=== PATIENT | male | born 1945 | race Caucasian/White ===

== ENCOUNTER 2017-12-04 15:39 | Emergency (ER) | payer OTHER ==
--- NOTE | 2017-12-04 15:51 | EDPHY ---
H & P Stated Complaint: CP Time Seen by Provider: 12/04/17 15:51 HPI/ROS: CHIEF COMPLAINT: Chest pain HISTORY OF PRESENT ILLNESS: The patient presents to the ED for evaluation of several days of substernal chest discomfort. The patient reports his symptoms are mild in nature. They seem to be primarily worsened with swallowing. Patient did exercise on his treadmill yesterday without any symptoms of increasing chest pain or shortness of breath. The patient denies any asymmetric calf pain or swelling. He denies any radiation of the pain to his neck jaw back or arms. The patient's past medical history is significant for hypertension. The patient denies recent surgery. The patient denies pleuritic chest pain. REVIEW OF SYSTEMS: A comprehensive 10 point review of systems is otherwise negative aside from elements mentioned in the history of present illness. Source: Patient Exam Limitations: No limitations - Personal History Current Tetanus/Diphtheria Vaccine: Yes - Medical/Surgical History Hx Asthma: No Hx Chronic Respiratory Disease: No Hx Diabetes: No Hx Cardiac Disease: Yes Hx Renal Disease: No Hx Cirrhosis: No Hx Alcoholism: No Hx HIV/AIDS: No Hx Splenectomy or Spleen Trauma: No Other PMH: stroke 2010, HTN - Social History Smoking Status: Never smoked - Physical Exam Exam: General Appearance: Alert, no distress Eyes: Pupils equal and round no pallor or injection ENT, Mouth: Mucous membranes moist Respiratory: There are no retractions, lungs are clear to auscultation Cardiovascular: Regular rate and rhythm Gastrointestinal: Abdomen is soft and nontender, no masses, bowel sounds normal Neurological: A&O, normal motor function, normal sensory exam, normal cranial nerves Skin: Warm and dry, no rashes Musculoskeletal: Neck is supple nontender Extremities: symmetrical, full range of motion Psychiatric: Patient is oriented X 3, there is no agitation Constitutional: Initial Vital Signs Temperature (C) 36.7 C 12/04/17 15:41 Heart Rate 62 12/04/17 15:41 Respiratory Rate 18 12/04/17 15:41 Blood Pressure 174/99 H 12/04/17 15:41 O2 Sat (%) 96 12/04/17 15:41 O2 Delivery Mode Room Air Allergies/Adverse Reactions: No Known Allergies Allergy (Unverified 12/04/17 15:45) Home Medications: Medication Instructions Recorded Amlodipine Besylate 05/09/13 Lipitor 80 mg 05/09/13 Lisinopril 05/09/13 Plavix (RX) 05/09/13 Medical Decision Making - Diagnostics EKG Interpretation: EKG: Complete interpretation has been separately recorded in the [facility] archive. Summary impression: Sinus rhythm, rate 59 Imaging Results: Imaging Impressions Chest X-Ray 12/04/17 16:02 Impression: 1. No active cardiopulmonary disease seen. 2. Healed fractures lateral right mid ribs. Chest x-ray AP lateral: Images reviewed by myself, negative for acute disease. Formal interpretation by Radiology pending. ED Course/Re-evaluation: The patient presents the ED with a several day history of painful swallowing. The patient denies any exertional chest pain or shortness of breath. He has no pleuritic chest pain. Patient was given a GI cocktail in the emergency department with improvement of his symptoms. His chest x-ray demonstrates no obvious disease by my interpretation. His EKG demonstrates no evidence of ischemia and his troponin is normal. At this point time I do favor dyspepsia and a likely esophageal source of his discomfort. 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 The patient has been instructed to return to the ED for markedly worsening chest pain, chest pain that is becoming exertional, fever, shortness of breath or for other acute concerns. Differential Diagnosis: Differential diagnosis considered includes dyspepsia, esophageal spasm, pericarditis, myocardial infarction, pancreatitis, hiatal hernia - Data Points Laboratory Results: Laboratory Results 12/04/17 15:59 12/04/17 15:59 12/04/17 12/04/17 12/04/17 15:59 15:59 15:56 WBC 13.95 10^3/uL H 10^3/uL (3.80-9.50) RBC 4.29 10^6/uL L 10^6/uL (4.40-6.38) Hgb 14.2 g/dL g/dL (13.7-17.5) Hct 42.1 % % (40.0-51.0) MCV 98.1 fL fL (81.5-99.8) MCH 33.1 pg pg (27.9-34.1) MCHC 33.7 g/dL g/dL (32.4-36.7) RDW 12.5 % % (11.5-15.2) Plt Count 164 10^3/uL 10^3/uL (150-400) MPV 10.0 fL fL (8.7-11.7) Neut % (Auto) Pending Lymph % (Auto) Pending [place] % (Auto) Pending Eos % (Auto) Pending Baso % (Auto) Pending Nucleat RBC Rel Count Pending Absolute Neuts (auto) Pending Absolute Lymphs (auto) Pending Absolute Monos (auto) Pending Absolute Eos (auto) Pending Absolute Basos (auto) Pending Absolute Nucleated RBC Pending Immature Gran % Pending Immature Gran # Pending Platelet Estimate Pending Sodium 138 mEq/L mEq/L (135-145) Potassium 4.1 mEq/L mEq/L (3.3-5.0) Chloride 101 mEq/L mEq/L (97-110) Carbon Dioxide 29 mEq/l mEq/l (22-31) Anion Gap 8 mEq/L mEq/L (8-16) BUN 15 mg/dL mg/dL (7-23) Creatinine 0.8 mg/dL mg/dL (0.7-1.3) Estimated GFR > 60 Glucose 92 mg/dL mg/dL (70-100) Calcium 9.4 mg/dL mg/dL (8.5-10.4) Total Bilirubin 1.5 mg/dL H mg/dL (0.1-1.4) Conjugated Bilirubin 0.0 mg/dL mg/dL (0.0-0.5) Unconjugated Bilirubin 1.5 mg/dL H mg/dL (0.0-1.1) AST 25 IU/L IU/L (17-59) ALT 34 IU/L IU/L (21-72) Alkaline Phosphatase 60 IU/L IU/L (38-126) POC Troponin I 0.00 ng/mL ng/mL (0.00-0.08) Total Protein 6.7 g/dL g/dL (6.3-8.2) Albumin 4.1 g/dL g/dL (3.5-5.0) Lipase 73 IU/L IU/L (23-300) Medications Given: Discontinued Medications Al Hydroxide/Mg Hydroxide (Maalox Susp) 30 ml PO ONCE ONE Stop: 12/04/17 16:03 Last Admin: 12/04/17 16:07 Dose: 30 ml Hyoscyamine Sulfate (Levsin, Hyomax-Sl) 0.25 mg PO ONCE ONE Stop: 12/04/17 16:03 Last Admin: 12/04/17 16:06 Dose: 0.25 mg Lidocaine (Lidocaine 2% Viscous) 15 ml PO ONCE ONE Stop: 12/04/17 16:03 Last Admin: 12/04/17 16:06 Dose: 15 ml Point of Care Test Results: Chemistry 12/04/17 15:56 POC Troponin I 0.00 ng/mL ng/mL (0.00-0.08) Departure - Departure Disposition: Home, Routine, Self-Care Clinical Impression: Dyspepsia Condition: Good Instructions: Indigestion (ED) Additional Instructions: 1. I recommend beginning Zantac 150 mg twice daily. 2. You may also use Maalox as needed for your symptoms. 3. Please contact Dr. Pruitt tomorrow to schedule a follow-up visit. You may a upper endoscopy for further evaluation of your symptoms. 4. Please return to the ED immediately for any worsening chest pain, exertional chest pain, difficulty breathing or worsening symptoms. Referrals: Sacha Denny MD [Primary Care Provider] - As per Instructions Aleksander Pruitt MD [[facility] [place] Primary Care Provider] - As per Instructions
[2017-12-04] MEDS ORDERED: LIDOCAINE 2% VISCOUS 15 ML UDCUP PO ONE (16:02)
[2017-12-04] MEDS ORDERED: HYOSCYAMINE SULFATE 0.125 MG TAB PO ONE (16:02)
[2017-12-04] MEDS ORDERED: MAG HYDROX/AL HYDROX/SIMETH 30 ML UDCUP PO ONE (16:02)
--- NOTE | 2017-12-04 16:07 | CPEKG ---
Test Reason : OPEN Blood Pressure : / mmHG Vent. Rate : 059 BPM Atrial Rate : 059 BPM P-R Int : 202 ms QRS Dur : 097 ms QT Int : 462 ms P-R-T Axes : 058 055 056 degrees QTc Int : 458 ms Sinus rhythm Confirmed by Arben Helms ([id number]) on 12/04/2017 4:06:44 PM Referred By: Confirmed By:Arben Helms
[2017-12-04 16:10] LABS: PLATELET COUNT 164 10^3/uL (150-400)
[2017-12-04 16:57] VITALS: BP 160/65
== END 2017-12-04 17:17 | disposition home or self-care (01) ==
DX: R10.13 Epigastric pain (principal); I10 Essential (primary) hypertension; Z86.73 Personal history of transient ischemic attack (TIA), and cerebral infarction without residual deficits
CPT/HCPCS: 84484-PO